=== PATIENT | female | born 1990 | race African-American/Black ===

== ENCOUNTER 2017-09-28 09:43 | Emergency (ER) | payer OTHER, SELFPAY ==
[2017-09-28] MEDS ORDERED: Mag-Al Plus 1200 MG/1200 MG/120 MG/30 ML UDCUP ONE (09:55)
[2017-09-28] MEDS ORDERED: Lidocaine Viscous Sol 2% 15 ml UD Cup ONE (09:56)
== END 2017-09-28 10:17 | disposition home or self-care (01) ==
LOC: BURERS 09:43
DX: R12 Heartburn (principal); T39.395A Adverse effect of other nonsteroidal anti-inflammatory drugs [NSAID], initial encounter; K03.81 Cracked tooth
CPT/HCPCS: 99283

== ENCOUNTER 2018-02-04 13:31 | Emergency (ER) | payer SELFPAY ==
[2018-02-04] MEDS ORDERED: Lidocaine Viscous Sol 2% 15 ml UD Cup ONE (14:01)
[2018-02-04] MEDS ORDERED: Mag-Al Plus 1200 MG/1200 MG/120 MG/30 ML UDCUP ONE (14:01)
[2018-02-04] MEDS ORDERED: Famotidine In NaCl 20 mg/50 ml Premix Bag ONE (14:01)
[2018-02-04] MEDS ORDERED: Pantoprazole 40 MG VIAL ONE (14:01)
[2018-02-04 14:21] LABS: ALT (SGPT) 11 U/L (8-55); AST (SGOT) 17 U/L (5-34); Albumin 4.4 g/dL (3.5-5.0); Alkaline Phosphatase 59 U/L (40-150); Anion Gap 15 mmol/L (10-20); BUN (Urea Nitrogen) 13 mg/dL (7.0-18.7); Bilirubin, Total 0.3 mg/dL (0.2-1.2); Calc. Creatinine Clearance 0 mL/min (70-130); Calcium 9.4 mg/dL (7.8-10.44); Carbon Dioxide 22 mmol/L (22-29); Chloride 105 mmol/L (98-107); Estimated GFR-MDRD Greater than 90; Globulin 3.7 g/dL (2.4-3.5); Glucose 83 mg/dL (70-105); Lipase 28 U/L (8-78); Potassium 3.9 mmol/L (3.5-5.1); Protein, Total 8.1 g/dL (6.0-8.3); Sodium 138 mmol/L (136-145)
[2018-02-04 14:22] LABS: Band 1 % (5-11); Hemoglobin 13.9 g/dL (12.0-16.0); Lymphocytes 22 % (21-51); MDiff Complete? YES; Mean Corpuscular HGB CONC 32.8 g/dL (32.0-36.0); Mean Corpuscular Hemoglobin 28.5 pg (27.0-31.0); Mean Corpuscular Volume 86.8 fL (78.0-98.0); Mean Platelet Volume 8.2 fL (7.4-10.4); Monocytes 8 % (0-10); Neutrophil 69 % (42-75); Platelet Count 289 thou/uL (130-400); RBC Distribution Width 11.8 % (11.5-14.5); Red Blood Cell (RBC) Count 4.88 mill/uL (4.20-5.40); White Blood Cell (WBC) Count 8.4 thou/uL (4.8-10.8)
[2018-02-04] MEDS ORDERED: Famotidine 20 MG TAB ONE (14:48)
== END 2018-02-04 15:10 | disposition home or self-care (01) ==
LOC: BURERS 13:31
DX: K92.2 Gastrointestinal hemorrhage, unspecified (principal)
CPT/HCPCS: 80053; 83690; 85025; 96365; 96375; C9113

== ENCOUNTER 2020-10-09 10:04 | Emergency (ER) | payer SELFPAY ==
[2020-10-09] MEDS ORDERED: Ibuprofen 800 MG TAB ONE (11:18)
== END 2020-10-09 12:00 | disposition home or self-care (01) ==
LOC: BURERS 10:04
DX: S93.422A Sprain of deltoid ligament of left ankle, initial encounter (principal); K21.9 Gastro-esophageal reflux disease without esophagitis; X58.XXXA Exposure to other specified factors, initial encounter

== ENCOUNTER 2020-12-31 22:13 | Emergency (ER) | payer SELFPAY ==
[2021-01-02 13:29] LABS: SARS-CoV-2 PCR by NAA Not Detected (NotDetected)
== END 2020-12-31 23:45 | disposition home or self-care (01) ==
LOC: BURERS 22:13
DX: I10 Essential (primary) hypertension (principal); Z20.822 Contact with and (suspected) exposure to COVID-19; K21.9 Gastro-esophageal reflux disease without esophagitis
CPT/HCPCS: 93005; U0003; U0005

== ENCOUNTER 2021-03-12 19:43 | Emergency (ER) | payer SELFPAY ==
[2021-03-12] MEDS ORDERED: Sulfameth/Trimethoprim DS 800-160mg TAB ONE (20:15)
[2021-03-12] MEDS ORDERED: Dexamethasone 4 MG TAB ONE (20:15)
== END 2021-03-12 20:18 | disposition home or self-care (01) ==
LOC: BURERS 19:43
DX: J01.90 Acute sinusitis, unspecified (principal); K21.9 Gastro-esophageal reflux disease without esophagitis
CPT/HCPCS: 99283; J8540

== ENCOUNTER 2021-05-31 14:26 | Emergency (ER) | payer SELFPAY ==
[2021-05-31] MEDS ORDERED: Morphine 4 MG/ML VIAL ONE (15:11)
[2021-05-31] MEDS ORDERED: Ondansetron PF 4 MG/2 ML Vial ONE (15:11)
[2021-05-31 15:30] LABS: #Basophils 0.2 thou/uL (0.0-0.2); #Eosinphils 0.1 thou/uL (0.0-0.7); #Lymphocytes 2.4 thou/uL (1.20-3.40); #Monocytes 0.5 thou/uL (0.11-0.59); #Neutrophils 6.2 thou/uL (1.40-6.50); %Eosinophils 1.6 % (0.0-10.0); %Monocytes 4.8 % (0.0-10.0); %Neutrophils 65.7 % (42.0-75.0); Hemoglobin 15.5 g/dL (12.0-16.0); Mean Corpuscular Hemoglobin 29.4 pg (27.0-31.0); Mean Corpuscular Volume 89.3 fL (78.0-98.0); Platelet Count 274 thou/uL (130-400); Red Blood Cell (RBC) Count 5.26 mill/uL (4.20-5.40); White Blood Cell (WBC) Count 9.4 thou/uL (4.8-10.8)
[2021-05-31 15:59] LABS: Bilirubin Small (Negative); Blood, Urine Trace (Negative); Clarity Cloudy (Clear); Glucose, Urine (Dipstick) Negative (Negative); Ketone, Urine Trace mg/dL (Negative); Leukocyte Small (Negative); Nitrite Negative (Negative); Protein, Urine (Dipstick) Trace mg/dL (Neg-Trace); Urobilinogen 0.2 mg/dL (Less than 2); pH, Urine 5.5 (5.0-9.0)
[2021-05-31 16:01] LABS: Specific Gravity, Urine 1.029 (1.002-1.036)
[2021-05-31 16:02] LABS: Pregnancy Test - Urine (BHCG) Negative (Negative); Pregu Control Background? CLEAR/WHITE (CLR/WHITE); Pregu Control Bar Appear? YES (CONTROL BAR); Specific Gravity 1.029 (1.002-1.036)
[2021-05-31 16:08] LABS: RBC/HPF 0-3 HPF (0-3); Squamous Epithelial 0-3 HPF (0-3)
[2021-05-31 16:09] LABS: Bacteria/HPF 2+ HPF (None Seen); Calcium Oxalate Crystals 3+ HPF (None Seen); Mucous/LPF 2+ LPF (<2+); Trichomonas/HPF Rare HPF (None Seen)
[2021-05-31 16:21] LABS: ALT (SGPT) 7 U/L (8-55); AST (SGOT) 14 U/L (5-34); Albumin 4.1 g/dL (3.5-5.0); Alkaline Phosphatase 59 U/L (40-110); Anion Gap 13 mmol/L (10-20); BUN (Urea Nitrogen) 6 mg/dL (7.0-18.7); Bilirubin, Total 0.2 mg/dL (0.2-1.2); Calc. Creatinine Clearance 0 mL/min (70-130); Calcium 8.6 mg/dL (7.8-10.44); Carbon Dioxide 21 mmol/L (22-29); Chloride 106 mmol/L (98-107); Globulin 3.4 g/dL (2.4-3.5); Glucose 89 mg/dL (70-105); Lipase 23 U/L (8-78); Potassium 3.7 mmol/L (3.5-5.1); Protein, Total 7.5 g/dL (6.0-8.3); Sodium 136 mmol/L (136-145)
[2021-05-31] MEDS ORDERED: Ketorolac Tromethamine 30 MG/ML VIAL ONE (16:30)
== END 2021-05-31 16:36 | disposition home or self-care (01) ==
LOC: BURERS 14:26
DX: N39.0 Urinary tract infection, site not specified (principal); K21.9 Gastro-esophageal reflux disease without esophagitis
CPT/HCPCS: 80053; 81003; 81015; 81025; 83690; 85025; 96374; 96375; J1885; J2270; J2405

== ENCOUNTER 2021-06-03 11:48 | Emergency (ER) | payer SELFPAY ==
[2021-06-03] MEDS ORDERED: Ibuprofen 800 MG TAB ONE (12:35)
[2021-06-03] MEDS ORDERED: HYDROcodone/Acetaminophen 5/325 mg Tablet ONE (12:35)
[2021-06-03 12:37] LABS: Bilirubin Negative (Negative); Blood, Urine Trace (Negative); Clarity Cloudy (Clear); Glucose, Urine (Dipstick) Negative (Negative); Ketone, Urine Negative (Negative); Leukocyte Small (Negative); Nitrite Negative (Negative); Protein, Urine (Dipstick) Negative (Neg-Trace); Urobilinogen 0.2 mg/dL (Less than 2)
[2021-06-03 12:42] LABS: Specific Gravity, Urine 1.024 (1.002-1.036)
[2021-06-03 12:46] LABS: RBC/HPF 0-3 HPF (0-3); Squamous Epithelial 0-3 HPF (0-3)
[2021-06-03 12:47] LABS: Bacteria/HPF 1+ HPF (None Seen); Transitional Epithelial 0-3 HPF (None Seen); Trichomonas/HPF 1+ HPF (None Seen)
[2021-06-03] MEDS ORDERED: Lidocaine 2% 20 ml MDV ONE (13:23)
[2021-06-03] MEDS ORDERED: cefTRIAXone\\ROCEPHIN 1 GM VIAL ONE (13:23)
[2021-06-03] MEDS ORDERED: Lidocaine 1% PF 5 ML VIAL ONE (13:26)
[2021-06-04 11:55] LABS: Chlam.trachomatis by PCR,Urine Not Detected (NotDetected)
== END 2021-06-03 14:09 | disposition home or self-care (01) ==
LOC: BURERS 11:48
DX: N70.03 Acute salpingitis and oophoritis (principal); A59.01 Trichomonal vulvovaginitis; K21.9 Gastro-esophageal reflux disease without esophagitis
CPT/HCPCS: 81003; 81015; 87077; 87086; 87491; 87591; 96372; 99284; J0696

== ENCOUNTER 2022-07-14 19:55 | Emergency (ER) | payer SELFPAY | END 2022-07-14 21:43 | disposition home or self-care (01) | LOC: BURERS 19:55 | DX: S93.401A Sprain of unspecified ligament of right ankle, initial encounter (principal); K21.9 Gastro-esophageal reflux disease without esophagitis; F17.210 Nicotine dependence, cigarettes, uncomplicated; X50.1XXA Overexertion from prolonged static or awkward postures, initial encounter ==

== ENCOUNTER 2022-09-03 20:46 | Emergency (ER) | payer SELFPAY ==
[2022-09-03] MEDS ORDERED: Lidocaine Viscous Sol 2% 15 ml UD Cup ONE (21:10)
[2022-09-03] MEDS ORDERED: Mag-Al Plus 1200 MG/1200 MG/120 MG/30 ML UDCUP ONE (21:10)
[2022-09-03 21:27] LABS: #Basophils 0.1 thou/uL (0.0-0.2); #Eosinphils 0.3 thou/uL (0.0-0.7); #Lymphocytes 2.6 thou/uL (1.20-3.40); #Monocytes 0.5 thou/uL (0.11-0.59); #Neutrophils 5.7 thou/uL (1.40-6.50); %Basophils 1.2 % (0.0-1.0); %Eosinophils 2.9 % (0.0-10.0); %Lymphocytes 28.1 % (21.0-51.0); %Monocytes 5.2 % (0.0-10.0); %Neutrophils 62.6 % (42.0-75.0); Hemoglobin 14.9 g/dL (12.0-16.0); Mean Corpuscular HGB CONC 34.1 g/dL (32.0-36.0); Mean Corpuscular Hemoglobin 30.5 pg (27.0-31.0); Mean Corpuscular Volume 89.5 fl (78.0-98.0); Mean Platelet Volume 6.8 fL (7.4-10.4); Platelet Count 270 10x3/uL (130-400); RBC Distribution Width 11.5 % (11.5-14.5); Red Blood Cell (RBC) Count 4.89 mill/uL (4.20-5.40); White Blood Cell (WBC) Count 9.2 10x3/uL (4.8-10.8)
[2022-09-03 21:44] LABS: ALT (SGPT) 17 U/L (8-55); AST (SGOT) 17 U/L (5-34); Albumin 4.3 g/dL (3.5-5.0); Alkaline Phosphatase 61 U/L (40-110); Anion Gap 13 mmol/L (10-20); BUN (Urea Nitrogen) 6 mg/dL (7.0-18.7); Bilirubin, Total 0.4 mg/dL (0.2-1.2); Calc. Creatinine Clearance 0 mL/min (70-130); Calcium 9.1 mg/dL (7.8-10.44); Carbon Dioxide 24 mmol/L (22-29); Chloride 107 mmol/L (98-107); Estimated GFR 112; Globulin 3.5 g/dL (2.4-3.5); Glucose 82 mg/dL (70-105); Lipase 23 U/L (8-78); Potassium 3.6 mmol/L (3.5-5.1); Protein, Total 7.8 g/dL (6.0-8.3); Sodium 140 mmol/L (136-145)
== END 2022-09-03 22:00 | disposition home or self-care (01) ==
LOC: BURERS 20:46
DX: K29.71 Gastritis, unspecified, with bleeding (principal); K21.9 Gastro-esophageal reflux disease without esophagitis
CPT/HCPCS: 80053; 83690; 85025; 99284